=== PATIENT | female | born 1950 | race Caucasian/White ===

== ENCOUNTER → 2024-02-14 11:01 | Outpatient (REF) | payer OTHER, SELFPAY | LOC: HWRAD 11:01 | PROVIDERS: ATTENDING PHYSICIAN Family Medicine | DX: C80.1 Malignant (primary) neoplasm, unspecified (principal); R51.9 Headache, unspecified | CPT/HCPCS: 70470; 70491; Q9967 ==

== ENCOUNTER 2024-03-02 11:37 | Emergency (ER) | payer OTHER, SELFPAY ==
[2024-03-02 12:35] VITALS: BMI 22.3
[2024-03-02 12:43] VITALS: BP 111/83
[2024-03-02] MEDS: NSS 1000 IV (13:06)
[2024-03-02] MEDS: DECADRON 10 MG IV (13:07)
[2024-03-02] MEDS: REGLAN 10 MG IV (13:07)
[2024-03-02] MEDS: BENADRYL 25 MG IV (13:07)
--- NOTE | 2024-03-02 13:21 | ED.GENMED ---
History of Present Illness
General
Chief Complaint: Headache
Source: patient
Time Seen by Provider: 03/02/24 12:46
History of Present Illness
History of Present Illness:
74-year-old female with past medical history of head and neck cancer status post chemoradiation and proton therapy at [facility], completed treatments about a year ago, presenting to the ER for evaluation of headaches that have been occurring daily for 3
months, acutely worse last night prompting visit to the ER today. Patient has a temp NSAIDs, Tylenol and a steroid taper with minimal to no relief. Pain seems to be most prominent on the right occipital region but patient states she still feels
the pain all over. Denies any focal weakness or numbness, visual changes, photo/phonophobia, fevers or infectious symptoms or any other concerns presently. Of note, patient had CT scans done of the head and cervical spine done here about 2 weeks
ago which did not show any acute intracranial pathologies, degenerative changes within the neck were noted as well as pulmonary nodules which were suspicious for metastases. Patient's daughter notes that the metastases were already something that
they were aware of and something that is being monitored closely by patient's oncology team at [facility]
Past History
Past History
ED Past Medical History: Cancer
ED Past Surgical History:
Social History
Tobacco: Former smoker
Alcohol: None
Drug: None
Personal: Single
Living: with family
Review of Systems
Review of Systems
All Other Systems: ROS reviewed and negative except as documented in HPI and ROS
Phy Exam
Physical Exam
Physical Exam:
GENERAL: Alert , appears uncomfortable and in pain
HEAD: NCAT
EYE: pupils equal and reactive, 4mm b/l, no periorbital edema
NECK: Supple, no meningismus
ENT: mmm.
CARDIAC: Regular rate and rhythm .
LUNGS: Clear breath sounds bilaterally, no acute respiratory distress, no wheezes/rales/rhonchi
NEUROLOGICAL: Alert and oriented, no focal neuro deficits
SKIN: Warm and dry, skin intact.
MUSCULOSKELETAL: No edema, well perfused.
PSYCH: Normal and appropriate interaction.
Scores
Heart Failure Risk
Heart Failure Risk Score: Not Applicable
Heart Score for Chest Pain Patients
STEMI patient?: Not applicable
Withdrawal Assessment of Alcohol
Withdrawal Assessment Completed?: Not applicable
Course
Orders/Labs/Results
Orders:
Orders
03/02/24 12:58
0.9% Sodium Chloride 1000 ml [Nss] 1,000 ml IV BOLUS
Dexamethasone Sod Phosphate [Decadron] 10 mg IV NOW STA
Diphenhydramine [Benadryl] 25 mg IV NOW STA
Metoclopramide [Reglan] 10 mg IV NOW STA
03/02/24 13:06
Basic Metabolic Panel Urgent
Complete Blood Count/With Diff Urgent
Abnormal Lab Results
03/02/24
13:06
RBC 3.69 L 10^6/uL
(4.20-5.40)
Hgb 11.1 L g/dL
(12.0-16.0)
Hct 33.4 L %
(37.0-47.0)
Lymphocytes % 17.0 L %
(20.5-51.1)
BUN 18 H mg/dl
(7-17)
03/02/24 13:06
03/02/24 13:06
Vital Signs
Initial and Last Documented VS:
Initial Vital Signs
Temp Pulse Resp Pulse Ox
97.8 F 60 16 99
03/02/24 11:44 03/02/24 11:44 03/02/24 11:44 03/02/24 11:44
Last Documented Vital Signs
Temp Pulse Resp BP Pulse Ox
97.8 F 57 18 122/76 98
03/02/24 11:44 03/02/24 16:41 03/02/24 16:41 03/02/24 16:41 03/02/24 16:41
MDM/Problems Addressed
Differential Diagnosis Includes:
tension headache, migraine headache, ICH, malignancy, post radiation complications
MDM/Problems Addressed:
74-year-old female presenting to the ER for evaluation of worsening headaches that have been ongoing for about 3 months, last night acutely worse prompting her to come to the ER today. No focal neurologic deficits on exam. Patient does appear
quite uncomfortable. Will treat with migraine cocktail and IV fluids. Will defer imaging at this point given patient had a CT scan done of the head and cervical spine 2 weeks ago. Patient and daughter are in agreement with this plan.
Reassessment following.
*Pulse Oximetry
Patient hypoxic: no
*Critical Care Note
Total Time (30-74mins, 75-104mins- exclusive of procedures): Not Applicable
Data Reviewed
Review of Other/Old Records Reveals: Labs and Records
Further Testing Considered But Not Given:
CT scan considered however patient had this study done 2 weeks ago here at this facility
Comment
Comment:
2:45PM - headache improved to 2/10. Continuing to observe patient. Anticipate d/c home
Patient Management
Escalation/DeEscalation of care consider admission/obs:
On continued re-evaluation, patient notes feels completely better and feels comfortable going home. Aware of return precautions to the ER. Will follow up with oncology team as an outpatient
ED Attending Note
-
Portions of this chart may have been created with voice recognition software.� Occasional wrong word or��sound alike� substitutions may have occurred due to the inherent limitations of voice recognition software.
Discharge Plan
Departure
Patient Disposition: Home (Routine Discharge)
Date of Disposition: 03/02/24
Time of Disposition: 16:08
Patient with high blood pressure during this ER visit?: No
Discharge Problem:
Headache
Instructions: Headache, Adult (DC)
Prescriptions:
New
rizatriptan 10 mg tablet,disintegrating
10 mg PO ONCE Qty: 8 0RF
No Action
amoxicillin 500 MG capsule
500 mg PO TID
fluticasone propionate 1 SPRAY spray,suspension
1 spray intranasal DAILY
valacyclovir 1,000 MG tablet
1,000 mg PO TID Qty: 21 0RF
famotidine 20 MG tablet
20 mg PO BID Qty: 28 0RF
Rx Instructions:
Take 20 mg twice a day for 14 days
ascorbic acid (vitamin C) [Vitamin C] 500 MG tablet
1,000 mg PO BID Qty: 56 0RF
Rx Instructions:
Take 1,000 mg twice a day for 14 days
aspirin 81 MG tablet,chewable
81 mg PO DAILY Qty: 14 0RF
Rx Instructions:
Take 81 mg daily for 14 days
zinc sulfate 220 MG capsule
220 mg PO DAILY Qty: 14 0RF
Rx Instructions:
Take 220 mg daily for 14 days
cholecalciferol (vitamin D3) 1,000 UNITS tablet
2,000 units PO DAILY Qty: 28 0RF
Rx Instructions:
Take 2,000 units daily for 14 days
melatonin 5 MG tablet
5 mg PO HS Qty: 14 0RF
Rx Instructions:
Take 5 mg daily at bedtime for 14 days
Referrals:
Aby Jean Baptiste MD [Family Provider] -
Interventions
Interventions:
*Risk Screen - Suicide Last Done: 03/02/24 11:44
*General Assessment Last Done: 03/02/24 11:44
*Neglect/Abuse Screening Last Done: 03/02/24 11:44
ED- Fall Risk Assessment Last Done: 03/02/24 12:39
*ED COVID-19 Vaccine History Last Done: 03/02/24 12:36
*Nursing Disposition Last Done: 03/02/24 16:40
ED- Neurological Assessment Last Done: 03/02/24 12:39
Discharge Date and Time
Discharge Date/Time: 03/02/24 16:41
Print Language: COMORAN
[2024-03-02 13:22] LABS: % Basophils 0.4 % (0-2); % Eosinophils 1.6 % (0-6); % Immature Granulocytes 0.3 % (0-0.5); % Monocytes 8.1 % (1.7-9.3); % Neutrophils 72.6 % (42.2-75.2); Absolute Eosinophils 0.1 10^3/uL (0-0.7); Absolute Lymphocytes 1.2 10^3/uL (1.2-3.4); Absolute Monocytes 0.6 10^3/uL (0.1-0.6); Absolute Neutrophils 4.9 10^3/uL (1.4-6.5); Hematocrit 33.4 % (37.0-47.0); Hemoglobin 11.1 g/dL (12.0-16.0); Mean Corp Hgb Conc. 33.2 g/dL (33.0-37.0); Mean Corpuscular Hgb 30.1 pg (27.0-31.0); Mean Corpuscular Volume 90.5 fL (81.0-99.0); Mean Platelet Volume 8.4 fL (7.4-10.4); Nucleated Red Blood Cells % 0 %; Platelet Count 266 10^3/uL (130-400); Red Blood Cell Count 3.69 10^6/uL (4.20-5.40); Red Cell Dist. Width 13.2 % (11.5-14.5); White Blood Cell Count 6.8 10^3/uL (4.8-10.8)
[2024-03-02 13:31] LABS: Blood Urea Nitrogen 18 mg/dl (7-17); Calcium 9.2 mg/dl (8.4-10.2); Carbon Dioxide 26 mmol/L (22-30); Chloride 105 mmol/L (98-107); Estimated Creatinine Clearance 72 ml/min; Glucose 90 mg/dl (70-99); Potassium 3.9 mmol/L (3.5-5.1); Sodium 143 mmol/L (135-145); eGFR > 60.00
[2024-03-02 14:37] VITALS: BP 119/76
[2024-03-02 16:41] VITALS: BP 122/76
== END 2024-03-02 16:41 | disposition home or self-care (01) ==
LOC: EMR 11:37
PROVIDERS: Physician Assistant Medical; EMERGENCY PHYSICIAN Student in an Organized Health Care Education/Training Program; FAMILY PHYSICIAN Family Medicine
DX: R51.9 Headache, unspecified (principal); Z87.891 Personal history of nicotine dependence; Z85.89 Personal history of malignant neoplasm of other organs and systems; Z92.3 Personal history of irradiation; Z92.21 Personal history of antineoplastic chemotherapy
CPT/HCPCS: 96374; 96375; 96361; 99284; 80048; 85025

== ENCOUNTER → 2024-04-23 15:27 | Outpatient (REF) | payer OTHER, SELFPAY | LOC: RAD 15:27 | PROVIDERS: FAMILY PHYSICIAN Family Medicine | DX: Z91.89 Other specified personal risk factors, not elsewhere classified (principal) | CPT/HCPCS: 93005 ==

== ENCOUNTER 2024-11-14 21:14 | Emergency (ER) | payer OTHER, SELFPAY ==
[2024-11-14 21:17] VITALS: BP 140/66
--- NOTE | 2024-11-15 00:56 | ED.GENMED ---
History of Present Illness
General
Chief Complaint: Musculo-Skeletal Complaint
Source: patient
Exam Limitations: none
Time Seen by Provider: 11/15/24 00:12
Nursing documentation reviewed up to this point in time: agreed with
History of Present Illness
History of Present Illness:
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
day. Denies any chest pain shortness of breath does take Xarelto for previous history of blood clot.
Past History
Past History
ED Past Medical History: Cancer
ED Past Surgical History:
Social History
Tobacco: Former smoker
Alcohol: None
Drug: None
Personal: Single
Living: with family
Review of Systems
Review of Systems
Allergies reviewed?: Yes
All Other Systems: ROS reviewed and negative except as documented in HPI and ROS
Phy Exam
Physical Exam
Physical Exam:
GENERAL: Alert , in no apparent distress
EYE: pupils equal and reactive
NECK: Supple, no significant adenopathy.
ENT: o/p clr, mmm.
CARDIAC: Regular rate and rhythm .
LUNGS: Clear breath sounds bilaterally, no acute respiratory distress, no wheezes/rales/rhonchi
ABDOMEN: Soft, without focal tenderness, no r/g, no cvat
NEUROLOGICAL: Alert and oriented, no focal neuro deficits
SKIN: Warm and dry, skin intact.
MUSCULOSKELETAL: Ecchymosis overlying the third MCP of the right hand with good range of motion no redness or warmth very minimal tenderness , well perfused.
PSYCH: Normal and appropriate interaction.
Course
Orders/Labs/Results
Orders:
Orders
11/14/24 21:17
Hand, Right 3 View [CR Hand - Right Min 3 Views] Urgent
Comment:
Reason For Exam: hand pain
11/15/24 00:54
Federico Wrap Right-Treatment ONCE
Vital Signs
Initial and Last Documented VS:
Initial Vital Signs
Temp Pulse Resp BP Pulse Ox
98.4 F 60 18 140/66 98
11/14/24 21:17 11/14/24 21:17 11/14/24 21:17 11/14/24 21:17 11/14/24 21:17
Last Documented Vital Signs
Temp Pulse Resp BP Pulse Ox
98.4 F 60 18 140/66 98
11/14/24 21:17 11/14/24 21:17 11/14/24 21:17 11/14/24 21:17 11/14/24 21:17
MDM/Problems Addressed
MDM/Problems Addressed:
74-year-old female presenting with concerns of right hand ecchymosis on unsure of any specific injury but does do a lot of physical activity and lifting over the day at work. Here there is some ecchymosis some mild discomfort with movement of the
third MCP no redness or warmth no signs of infection good neurovascular examination x-ray without acute abnormalities. Unsure of specific cause but no red flag symptoms advised for close outpatient follow-up. Return precautions given.
*Pulse Oximetry
SaO2: 98
Oxygen Mode of Delivery: Room air
Patient hypoxic: no (98)
*Critical Care Note
Total Time (30-74mins, 75-104mins- exclusive of procedures): Not Applicable
ED Attending Note
-
Portions of this chart may have been created with voice recognition software.� Occasional wrong word or��sound alike� substitutions may have occurred due to the inherent limitations of voice recognition software.
Discharge Plan
Departure
Patient Disposition: Home (Routine Discharge)
Date of Disposition: 11/15/24
Time of Disposition: 00:58
Patient with high blood pressure during this ER visit?: No
Condition: Good
Covid-19: Not Applicable
Discharge Problem:
Traumatic ecchymosis of right hand
Instructions: Contusion (DC)
Prescriptions:
No Action
amoxicillin 500 MG capsule
500 mg PO TID
fluticasone propionate 1 SPRAY spray,suspension
1 spray intranasal DAILY
valacyclovir 1,000 MG tablet
1,000 mg PO TID Qty: 21 0RF
famotidine 20 MG tablet
20 mg PO BID Qty: 28 0RF
Rx Instructions:
Take 20 mg twice a day for 14 days
ascorbic acid (vitamin C) [Vitamin C] 500 MG tablet
1,000 mg PO BID Qty: 56 0RF
Rx Instructions:
Take 1,000 mg twice a day for 14 days
aspirin 81 MG tablet,chewable
81 mg PO DAILY Qty: 14 0RF
Rx Instructions:
Take 81 mg daily for 14 days
zinc sulfate 220 MG capsule
220 mg PO DAILY Qty: 14 0RF
Rx Instructions:
Take 220 mg daily for 14 days
cholecalciferol (vitamin D3) 1,000 UNITS tablet
2,000 units PO DAILY Qty: 28 0RF
Rx Instructions:
Take 2,000 units daily for 14 days
melatonin 5 MG tablet
5 mg PO HS Qty: 14 0RF
Rx Instructions:
Take 5 mg daily at bedtime for 14 days
rizatriptan 10 mg tablet,disintegrating
10 mg PO ONCE Qty: 8 0RF
Referrals:
Aby Jean Baptiste MD [Family Provider, Family Practice]
Activity Restrictions/Additional Instructions:
You came to the emergency department today with concerns of bruising to your right hand. It is unclear what specifically caused this but no signs of any emergent process. Please keep a close eye. If symptoms are progressing please return for
reassessment.
Interventions
Interventions:
*Risk Screen - Suicide Last Done: 11/14/24 21:17
*General Assessment Last Done: 11/14/24 21:17
*Neglect/Abuse Screening Last Done: 11/14/24 21:17
*ED- Fall Risk Assessment Last Done: 11/14/24 21:17
*ED COVID-19 Vaccine History Last Done: 11/14/24 21:17
Discharge Date and Time
Print Language: [id number]
== END 2024-11-15 01:43 | disposition home or self-care (01) ==
LOC: EMR 21:14
PROVIDERS: EMERGENCY PHYSICIAN Emergency Medicine; FAMILY PHYSICIAN Family Medicine
DX: S60.221A Contusion of right hand, initial encounter (principal); X58.XXXA Exposure to other specified factors, initial encounter; Z87.891 Personal history of nicotine dependence
CPT/HCPCS: 99283; 73130